=== PATIENT | male | born 2005 | race Hispanic/Latino ===

== ENCOUNTER 2025-01-18 14:58 | Emergency (ER) | payer OTHER ==
[~2025-01-18] VITALS: Ht 182.9 cm; Wt 91.8 kg
[2025-01-18 15:02] VITALS: BP 133/84; TEMP 97; O2SAT 99
[2025-01-18] MEDS ORDERED: IBUP80TA PO (15:10)
[2025-01-18] MEDS ORDERED: PRED20TA PO (16:12)
[2025-01-18] MEDS ORDERED: GABA-1172 PO (16:12)
[2025-01-18] MEDS: predniSONE 20 MG TAB PO ONE (16:20)
== END 2025-01-18 16:22 | disposition home or self-care (01) ==
LOC: M ED 14:58
DX: M54.50 Low back pain, unspecified (principal); M54.16 Radiculopathy, lumbar region; M41.9 Scoliosis, unspecified
CPT/HCPCS: 99281; J7512